=== PATIENT | female | born 1965 | race Caucasian/White ===

== ENCOUNTER 2024-11-05 20:18 | Emergency (ER) | payer BC ==
[2024-11-05 20:23] VITALS: BP 158/91; PULSE 80; RESP 18; TEMP 98.5; BMI 23.6
== END 2024-11-05 21:32 | disposition home or self-care (01) ==
LOC: JERFT 20:18
DX: Z76.0 Encounter for issue of repeat prescription (principal)
CPT/HCPCS: 99281-25